=== PATIENT | female | born 1995 ===

== ENCOUNTER 2020-10-29 13:00 | Outpatient (REF) | payer OTHER, SELFPAY ==
[2020-10-30 02:31] LABS: CT PCR NOT DETECTED (Not Detect.)
[2020-10-30 02:32] LABS: NG PCR NOT DETECTED (Not Detect.)
== END 2020-10-29 13:01 | disposition home or self-care (01) ==
LOC: HO.LAB 13:00
PROVIDERS: Visit Provider Advanced Practice Midwife
DX: Z01.419 Encounter for gynecological examination (general) (routine) without abnormal findings (principal); Z20.2 Contact with and (suspected) exposure to infections with a predominantly sexual mode of transmission; Z79.899 Other long term (current) drug therapy
CPT/HCPCS: 87491; 87591; 88142

== ENCOUNTER 2022-07-14 08:40 | Outpatient (REF) | payer OTHER, SELFPAY ==
[2022-07-14 14:29] LABS: CT PCR NOT DETECTED (Not Detect.); NG PCR NOT DETECTED (Not Detect.)
[2022-07-15 09:26] LABS: BV Int Neg Control Negative (Negative); BV Int Pos Control Positive (Positive)
== END 2022-07-14 08:41 | disposition home or self-care (01) ==
LOC: HO.LNP 08:40
PROVIDERS: Visit Provider Advanced Practice Midwife
DX: Z01.419 Encounter for gynecological examination (general) (routine) without abnormal findings (principal); Z20.2 Contact with and (suspected) exposure to infections with a predominantly sexual mode of transmission; Z79.899 Other long term (current) drug therapy
CPT/HCPCS: 0353U; 87480; 87510; 87660; 88142